=== PATIENT | male | born 2000 | race Caucasian/White ===

== ENCOUNTER 2022-09-02 16:18 | Observation (INO) | payer BC ==
[2022-09-02] VITALS (231 sets, daily range): BP systolic 105–124; BP diastolic 45–53; PULSE 101–103; TEMP 98.1–99.5; O2SAT 93–99
[~2022-09-02] VITALS: Ht 185.4 cm; Wt 82.0 kg
[2022-09-02 16:52] LABS: HEMATOCRIT 45.8 % (36.0-47.0); HEMOGLOBIN 15.1 g/dl (12.5-16.1); MEAN CELL VOLUME 92 fl (80.0-95.0); MEAN CORPUSCULAR HEMOGLOBIN 30 pg (26-32); MEAN CORPUSCULAR HGB CONC 33 g/dl (33.0-37.0); MEAN PLATELET VOLUME 9.9 fl (7.4-10.4); PLATELET COUNT 329 K/mm3 (130-400); RED BLOOD COUNT 4.97 M/mm3 (4.20-5.60); REDCELL DISTRIBUTION WIDTH-CV 12.3 % (11.5-14.5)
[2022-09-02 17:10] LABS: COLLECTION METHOD CLEAN CATCH
[2022-09-02 17:11] LABS: ALANINE AMINOTRANSFERASE 98 U/L (0-55); ALBUMIN 5.1 gm/dL (3.5-5.0); ALKALINE PHOSPHATASE 108 U/L (40-150); ANION GAP 26 mmol/L (7-16); AST,SGOT 155 U/L (5-34); BILIRUBIN,TOTAL 1.4 mg/dL (0.2-1.2); BLOOD UREA NITROGEN 28 mg/dL (9-21); CHLORIDE 100 mmol/L (98-107); POTASSIUM 5.4 mmol/L (3.5-4.5); SODIUM 135 mmol/L (136-145); TOTAL PROTEIN 7.9 gm/dL (6.2-8.1)
[2022-09-02 17:15] LABS: BAND 1 % (0-10); CARBON DIOXIDE 9 mmol/L (22-29); GLUCOSE 500 mg/dL (70-99); NEUTROPHILS 97 % (42.0-75.2)
[2022-09-02 17:16] LABS: HYPOCHROMIA 1+; PLATELET ESTIMATE NORMAL (NORMAL)
[2022-09-02 17:23] LABS: ACETONE,SERUM SMALL
[2022-09-02 17:34] LABS: SQUAMOUS EPITHELIAL None Seen /hpf (0-10); URINE BACTERIA None Seen /hpf (NONE SEEN); URINE RBC None Seen /hpf (0-2)
[2022-09-02 17:35] LABS: URINE APPEARANCE Clear (CLEAR/HAZY); URINE COLOR Yellow (YELLOW)
[2022-09-02 17:36] LABS: URINE GLUCOSE 2+ (NEGATIVE); URINE KETONE 4+ (NEGATIVE); URINE NITRATE Negative (NEGATIVE); URINE PROTEIN(semi-quant) Negative (NEGATIVE); URINE UROBILINOGEN 0.2 E.U/dL (0.2-1.0)
[2022-09-02 17:37] LABS: URINE BLOOD 2+ (NEGATIVE)
[2022-09-02 21:22] LABS: CALCIUM 8.7 mg/dL (8.4-10.2); CREATININE, serum 1.6 mg/dL (0.72-1.25); POTASSIUM 4.7 mmol/L (3.5-4.5)
[2022-09-03] VITALS (655 sets, daily range): BP systolic 104–115; BP diastolic 47–61; PULSE 77–91; TEMP 97.5–98.4; O2SAT 61–100
[2022-09-03 01:27] LABS: CALCIUM 8.4 mg/dL (8.4-10.2); CREATININE, serum 1.55 mg/dL (0.72-1.25); POTASSIUM 4.3 mmol/L (3.5-4.5)
[2022-09-03] MEDS ORDERED: APIDRAVL SQ (03:52)
--- NOTE | 2022-09-03 05:43 | NUR ---
GAP IS CLOSED AND HOSPITALIST WANTED TO INSULIN DRIP TO BE STOPPED AT 0500. ALSO TO START THE ACCU CHECKS AT 0500 TO SEE IF PT NEEDED INSULIN PER MID SLIDING SCALE OF NOVOLOG. PT DIDN'T GET ANY PER GLUCOSE LEVELS. LEVEMIR WAS GIVEN AT 0400 PER ORDERS.
--- NOTE | 2022-09-03 06:15 | NUR ---
PT IS OFF INSULIN DRIP SINCE 0500. WILL GET BREAKFAST ORDERED FOR THE PT. VITALS HAVE BEEN STABLE THROUGHOUT THE NIGHT. PT WAS ST AT THE BEGINNING OF THE SHIFT AND THROUGHOUT THE NIGHT WAS IN THE 80'S. PT WILL GO SB WHEN IN DEEP SLEEP. PT'S MAP HAS BEEN IN THE LOW 60'S. HOSPITALIST WAS NOTIFIED. WILL GIVE REPORT TO DAY SHIFT NURSE.
[2022-09-03 06:32] LABS: CALCIUM 8.5 mg/dL (8.4-10.2); CREATININE, serum 1.37 mg/dL (0.72-1.25); POTASSIUM 3.9 mmol/L (3.5-4.5)
--- NOTE | 2022-09-03 08:36 | NUR ---
BEDSIDE REPORT RECEIVED FROM PONCE KRAMER. PT RESTING IN BED, VSS. NO DRIPS INFUSING AT THIS TIME. PT IS ALERT AND ORIENTED, USES CALL LIGHT FOR NEEDS.
[2022-09-03 09:24] LABS: BASO % 0.2 % (0.0-2.0); EOS % 0.3 % (0.0-4.0); GRAN # 9.3 K/mm3 (1.4-6.5); GRAN % 83.1 % (42.2-75.2); HEMATOCRIT 39.8 % (36.0-47.0); HEMOGLOBIN 13.2 g/dl (12.5-16.1); LYMPH # 1.1 K/mm3 (1.2-3.4); LYMPH % 9.6 % (20.0-51.0); MEAN CELL VOLUME 91 fl (80.0-95.0); MEAN CORPUSCULAR HEMOGLOBIN 30 pg (26-32); MEAN CORPUSCULAR HGB CONC 33 g/dl (33.0-37.0); MEAN PLATELET VOLUME 9.4 fl (7.4-10.4); MONO # 0.7 K/mm3 (0.1-0.6); MONO % 6.6 % (1.7-9.3); PLATELET COUNT 253 K/mm3 (130-400); RED BLOOD COUNT 4.39 M/mm3 (4.20-5.60); REDCELL DISTRIBUTION WIDTH-CV 12.6 % (11.5-14.5)
[2022-09-03 09:37] LABS: CALCIUM 8.3 mg/dL (8.4-10.2); CREATININE, serum 1.39 mg/dL (0.72-1.25); POTASSIUM 4.4 mmol/L (3.5-4.5)
--- NOTE | 2022-09-03 11:04 | NUR ---
SW met with patient to complete intake. 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 He states that he is missing classes but has not been in contact with his professors. Patient denies off for this SW to reach out to student life. He lives off campus with a roommate and is fully independent with his cares. Patient's next of kin in his mother Marge ([phone]). Patient is an established diabetic and has his glucometer and test strips at bedside. He denies having a problem affording his medications.
--- NOTE | 2022-09-03 11:08 | NUR ---
Initial visit; Patient states his is doing ok and thanked [employer] for stopping. Patient is receptive to [employer] keeping him in [employer]'s prayers.
--- NOTE | 2022-09-03 14:21 | NUR ---
PT ABLE TO TOLERATE FOOD/PO FLUIDS WELL. SLIDING SCALE INSULIN GIVEN PRIOR TO LUNCH. ADDITIONAL 8U NOVOLOG GIVEN AT 1410 PRIOR TO D/C PER DR Ousmane CUNHA. IV SITES TO L AND R AC'S BOTH DISCONTINUED. PT INSTRUCTED TO REPLACE OMNIPOD UNIT SOON POSSIBLE, PT STATES HE HAS SUPPLIES AT HOME. PT ALSO INSTRUCTED TO FOLLOW UP W/ PCP IN 1-2 WEEKS AND ENDOCRINOLOGY IN 3-4 WEEKS. DISCHARGE PACKET GIVEN W/ DIABETIC EDUCATION INCLUDED. PT D/C'D AMBULATORY TO HOME AT 1415, ACCOMPANIED BY NURSE TO EXIT.
== END 2022-09-03 14:15 | disposition home or self-care (01) ==
LOC: COL.ER 16:18 → ICU 18:11
PROVIDERS: Emergency Medicine; Student in an Organized Health Care Education/Training Program; ADMIT Internal Medicine
DX: E10.10 Type 1 diabetes mellitus with ketoacidosis without coma (principal); E87.5 Hyperkalemia; N17.9 Acute kidney failure, unspecified; Z96.41 Presence of insulin pump (external) (internal)
CPT/HCPCS: G0378; J1650; J1815; J2405; J2550; J7030

== ENCOUNTER 2024-05-04 19:34 | Emergency (ER) | payer BC ==
[~2024-05-04] VITALS: Ht 185.4 cm; Wt 88.6 kg
[~2024-05-04 19:34] MED LIST: APIDRAVL SQ
[2024-05-04 19:37] VITALS: TEMP 99.7
[2024-05-04] MEDS ORDERED: NS 1,000 ML IV ONE (20:45)
[2024-05-04] MEDS ORDERED: dexAMETHasone 10 MG/ML VIAL IV ONE (22:00)
[2024-05-04 22:04] LABS: BASO % 0.3 % (0.0-2.0); EOS % 0.5 % (0.0-4.0); GRAN # 6.1 K/mm3 (1.4-6.5); GRAN % 77.7 % (42.2-75.2); HEMATOCRIT 39.9 % (42.0-52.0); HEMOGLOBIN 13.8 g/dl (13.5-18.0); LYMPH % 12.5 % (20.0-51.0); MEAN CELL VOLUME 88 fl (80.0-100.0); MEAN CORPUSCULAR HEMOGLOBIN 31 pg (27-31); MEAN CORPUSCULAR HGB CONC 35 g/dl (33.0-37.0); MEAN PLATELET VOLUME 9.7 fl (7.4-10.4); MONO # 0.7 K/mm3 (0.1-0.6); MONO % 8.9 % (1.7-9.3); PLATELET COUNT 244 K/mm3 (130-400); RED BLOOD COUNT 4.52 M/mm3 (4.20-5.60); REDCELL DISTRIBUTION WIDTH-CV 11.9 % (11.5-14.5)
[2024-05-04 22:18] LABS: MONOSCREEN NEGATIVE
[2024-05-04 22:20] LABS: ALBUMIN 3.5 g/dL (3.5-5.0); BILIRUBIN,TOTAL 0.6 mg/dL (0.2-1.2); CALCIUM 9.1 mg/dL (8.4-10.2); CREATININE, serum 1.36 mg/dL (0.72-1.25); POTASSIUM 4.1 mEq/L (3.5-4.5); TOTAL PROTEIN 6.5 g/dl (6.2-8.1)
[2024-05-04 22:52] VITALS: BP 134/75; PULSE 109
== END 2024-05-04 22:50 | disposition home or self-care (01) ==
LOC: COL.ER 19:34
PROVIDERS: Family Medicine
DX: J02.9 Acute pharyngitis, unspecified (principal)
CPT/HCPCS: J1100; J7030